=== PATIENT | female | born 1995 | race Caucasian/White ===

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

== ENCOUNTER 2019-03-16 14:15 | Emergency (ER) | payer OTHER ==
[~2019-03-16] VITALS: Ht 180.3 cm; Wt 81.7 kg
[2019-03-16 15:04] VITALS: BP 120/70
--- NOTE | 2019-03-16 15:23 | NUR ---
PT TO ER BED 9
--- NOTE | 2019-03-16 15:29 | NUR ---
ATTEMPTED TO "POP LEFT HIP" WHILE TRAPPING BOYFRIEND'S LEG INBETWEEN HERS X YESTERDAY THEN FELT IMMEDIATE PAIN, DEVIATION TO KNEE. STATES LEFT KNEE "POPPED OUT", PT "POPPED IT BACK" HERSELF. STATES SHE JUST WANTS AN EXCUSE FROM WORK REASON FOR THIS VISIT. AMBULATORY WITH LIMPING GAIT. STATES / PAIN, HAVE BEEN TAKING IBUPROFEN WITH RELIEF. HX--DENIES RX---NONE
[2019-03-16] MEDS ORDERED: IBUPROFEN 600 MG TAB PO ONE (15:50)
[2019-03-16 16:48] VITALS: BP 112/73
== END 2019-03-16 16:45 | disposition home or self-care (01) ==
LOC: MED 14:15
DX: S83.92XA Sprain of unspecified site of left knee, initial encounter (principal); X58.XXXA Exposure to other specified factors, initial encounter; Y93.89 Activity, other specified; Y92.89 Other specified places as the place of occurrence of the external cause; Y99.8 Other external cause status
CPT/HCPCS: 29505; 73562; 99283; J7030

== ENCOUNTER 2020-03-21 22:38 | Emergency (ER) | payer OTHER ==
[~2020-03-21] VITALS: Ht 177.8 cm; Wt 79.4 kg
[2020-03-21 22:44] VITALS: BP 147/96
[2020-03-21 23:28] LABS: APPEARANCE,URINE CLEAR (CLEAR); BILIRUBIN,URINE 1+ (NEGATIVE); BLOOD, URINE 2+ (NEGATIVE); COLOR,URINE YELLOW (YELLOW); LEUKOCYTE ESTERASE ,URINE NEGATIVE (NEGATIVE); NITRITE, URINE NEGATIVE (NEGATIVE); UGLUCOSE NEGATIVE (NEGATIVE)
[2020-03-21 23:30] LABS: BASOPHILS % (AUTO) 0.3 % (0.0-2.0); EOSINOPHILS # (AUTO) 0.1 K/uL (0-0.4); EOSINOPHILS % (AUTO) 0.8 % (0.0-4.0); HEMOGLOBIN 14.1 g/dL (12.0-16.0); LYMPHOCYTES # (AUTO) 1.9 K/uL (2.5-16.5); MEAN CORPUSCULAR HEMOGLOBIN 31 pg (27-31); MEAN CORPUSCULAR HGB CONC 35 g/dL (33-37); MONOCYTES # (AUTO) 0.6 K/uL (0.8-1.0); MONOCYTES % (AUTO) 6.5 % (1.7-9.3); NEUTROPHILS # (AUTO) 6.4 K/uL (1.8-7.7); NEUTROPHILS % (AUTO) 71.4 % (42.2-75.2); PLATELET COUNT (AUTO) 232 K/uL (140-450); RED BLOOD CELL COUNT(AUTO) 4.55 MIL/uL (4.20-5.40)
[2020-03-21 23:48] LABS: WBC,URINE 0-5 /HPF (0-5)
[2020-03-22] LABS: PROTHROMBIN TIME 10.3 secs (10.8-13.4)
[2020-03-22 00:46] VITALS: BP 102/65
== END 2020-03-22 00:46 | disposition home or self-care (01) ==
LOC: MED 22:38
DX: N93.8 Other specified abnormal uterine and vaginal bleeding (principal)
CPT/HCPCS: 36415; 81001; 84702; 85025; 85610; 85730; 99283

== ENCOUNTER 2023-10-29 17:11 | Emergency (ER) | payer OTHER ==
[~2023-10-29] VITALS: Ht 180.3 cm; Wt 83.7 kg
[2023-10-29 17:30] VITALS: BP 116/66; PULSE 77; RESP 20; TEMP 98.1; O2SAT 99
== END 2023-10-29 17:54 | disposition home or self-care (01) ==
LOC: MED 17:11
DX: K04.7 Periapical abscess without sinus (principal)
CPT/HCPCS: 99282